=== PATIENT | female | born 1985 | race Caucasian/White ===

== ENCOUNTER 2017-09-14 05:43 | Emergency (ER) | payer OTHER ==
[~2017-09-14] VITALS: Ht 160 cm; Wt 104.3 kg
[~2017-09-14 05:43] MED LIST: ALDACTONE50 MG PO; CIPRO500 MG PO; COLACE100 MG PO; DOXYCYCLINE 10100 MG PO; FLAGYL500 MG PO; HYDROCODON-ACE1 EAC7; HYDROCODONE-APA1 TA1 PO; MACROBID 100 M100 M1 PO; NAPROSYN500 MG PO; NEXPLANON68 MG SQ; NOHOMEMEDICATIONS; NORCO 5-325 TA1 EACH PO; PENTASA500 MG PO; PERCOCET 5-3251 EACH PO; PREDNISONE50 MG PO; PROBIOTIC1 EAC1 PO; ROBAXIN 750 MG750 MG PO; ROXICODONE5 MG PO; SPRINTEC1 EACH PO
[2017-09-14 06:13] LABS: HEMATOCRIT 38.6 % (37.0-47.0); HEMOGLOBIN 12.7 gm/dL (12.0-15.0); MCH 28.5 pg (26.0-34.0); MCHC 32.9 g/dL (28.0-37.0); MCV 86.8 fL (80.0-100.0); MPV 10.9 fl. (7.2-11.1); NUCLEATED RBCS 0 /100WBC; PLATELET COUNT* 188 thou/uL (150-400); RBC 4.44 mil/uL (4.20-5.00); RDW-CV 14.9 % (10.5-14.5); WBC 11.2 thou/uL (4.0-11.0)
[2017-09-14 06:17] LABS: CALCIUM 8.3 mg/dL (8.5-10.1); CREATININE 0.9 mg/dL (0.6-1.3); POTASSIUM 3.9 mmol/L (3.5-5.1)
[2017-09-14 06:22] LABS: ALBUMIN 3.3 g/dL (3.4-5.0); TOTAL BILIRUBIN 0.4 mg/dL (<0.1-1.0); TOTAL PROTEIN 6.9 g/dL (6.4-8.2)
[2017-09-14 06:48] LABS: ABSOLUTE LYMPHOCYTES 0.9 thou/uL (0.8-5.3); ABSOLUTE MONOCYTES 0.2 thou/uL (0.0-1.2); ABSOLUTE NEUTROPHILS 10.1 thou/uL (1.6-8.1); ANISOCYTOSIS 1+; PLATELET ESTIMATE ADEQUATE; POIKILOCYTOSIS 1+
[2017-09-14] MEDS ORDERED: PRILOSEC OTC20 MG PO (07:28)
[2017-09-14] MEDS ORDERED: ZOFRAN ODT4 MG PO (07:28)
[2017-09-14] MEDS ORDERED: CARAFATE 1 GM TA1 GM PO (07:28)
[2017-09-14 08:25] VITALS: BP 101/65
== END 2017-09-14 08:40 | disposition home or self-care (01) ==
LOC: M.ERS 05:43
PROVIDERS: Emergency Medicine
DX: R10.13 Epigastric pain (principal); Z90.49 Acquired absence of other specified parts of digestive tract; Z88.5 Allergy status to narcotic agent

== ENCOUNTER 2019-09-07 17:19 | Emergency (ER) | payer BC ==
[~2019-09-07] VITALS: Ht 160 cm; Wt 124.7 kg
[~2019-09-07 17:19] MED LIST changes: +CARAFATE 1 GM TA1 GM PO; +PRILOSEC OTC20 MG PO; +ZOFRAN ODT4 MG PO
[2019-09-07] MEDS ORDERED: AMITRIPTYLINE H25 M3 PO (17:34)
[2019-09-07 18:03] LABS: ABSOLUTE BASOPHILS 0.1 thou/uL (0.0-0.2); ABSOLUTE EOSINOPHILS 0.1 thou/uL (0.0-0.7); ABSOLUTE LYMPHOCYTES 2.2 thou/uL (0.8-5.3); ABSOLUTE MONOCYTES 0.7 thou/uL (0.0-1.2); ABSOLUTE NEUTROPHILS 7.4 thou/uL (1.6-8.1); BASOPHILS 0.9 %; EOSINOPHILS 0.5 %; HEMATOCRIT 37.2 % (37.0-47.0); HEMOGLOBIN 12.7 gm/dL (12.0-15.0); MCH 29.4 pg (26.0-34.0); MCHC 34.2 g/dL (28.0-37.0); MONOCYTES 6.7 %; MPV 10.5 fl. (7.2-11.1); NUCLEATED RBCS 0 /100WBC; PLATELET COUNT* 276 thou/uL (150-400); POLYS 70.9 %; RBC 4.32 mil/uL (4.20-5.00); RDW-CV 14.2 % (10.5-14.5); WBC 10.4 thou/uL (4.0-11.0)
[2019-09-07 18:11] LABS: CALCIUM 8.9 mg/dL (8.5-10.1); CREATININE 0.7 mg/dL (0.6-1.3); POTASSIUM 3.9 mmol/L (3.5-5.1)
[2019-09-07 18:16] LABS: ALBUMIN 3.4 g/dL (3.4-5.0); TOTAL BILIRUBIN 0.2 mg/dL (<0.1-1.0); TOTAL PROTEIN 7.7 g/dL (6.4-8.2)
[2019-09-07 20:42] VITALS: BP 115/74
== END 2019-09-07 20:43 | disposition home or self-care (01) ==
LOC: M.ERS 17:19
PROVIDERS: Nurse Practitioner Family
DX: G43.909 Migraine, unspecified, not intractable, without status migrainosus (principal); Z88.5 Allergy status to narcotic agent; Z90.49 Acquired absence of other specified parts of digestive tract; Z90.89 Acquired absence of other organs